=== PATIENT | male | born 1935 | race Caucasian/White ===

== ENCOUNTER 2020-07-02 17:47 | Emergency (ER) | payer MEDICARE ==
--- NOTE | 2020-07-02 17:52 | ER Document Report ---
ED Medical Screen (RME) - General Stated Complaint: CONFUSION, POSSIBLE STROKE Time Seen by Provider: 07/02/20 17:50 Mode of Arrival: Ambulatory Information source: Patient, Relative Notes: Patient presents complaining of episodes of confusion since yesterday around 7 PM. Patient has a history of previous CVA and has had problems with aphasia in the past although patient states he has had episodes of confusion, which is different from his baseline. Patient denies any pain symptoms. Patient denies any weakness of extremities. Patient family has spoke to his doctor and they were concerned about possible stroke or an infection that may be causing his symptoms. I have greeted and performed a rapid initial assessment of this patient. A comprehensive ED assessment and evaluation of the patient, analysis of test results and completion of the medical decision making process will be conducted by additional ED providers. Physical Exam - Neurological Neuro grossly intact: Yes Cognition: Normal Sudha Coma Scale Eye Opening: Spontaneous Sudha Coma Scale Verbal: Oriented Sudha Coma Scale Motor: Obeys Commands [place] Coma Scale Total: 15
--- NOTE | 2020-07-02 18:10 | RADIOLOGY REPORT (SQ) ---
EXAM DESCRIPTION: CHEST SINGLE VIEW IMAGES COMPLETED DATE/TIME: 07/02/2020 6:02 pm REASON FOR STUDY: AMS COMPARISON: None. EXAM PARAMETERS: NUMBER OF VIEWS: One view. TECHNIQUE: Single frontal radiographic view of the chest acquired. RADIATION DOSE: NA LIMITATIONS: None. FINDINGS: LUNGS AND PLEURA: No opacities, masses or pneumothorax. No pleural effusion. MEDIASTINUM AND HILAR STRUCTURES: No masses. Contour normal. HEART AND VASCULAR STRUCTURES: Heart normal in size. Normal vasculature. BONES: No acute findings. HARDWARE: None in the chest. OTHER: No other significant finding. IMPRESSION: NO ACUTE RADIOGRAPHIC FINDING IN THE CHEST. TECHNICAL DOCUMENTATION: JOB ID: [id number] 2010 [employer]- All Rights Reserved Reading location - IP/workstation name: [email or web address]
--- NOTE | 2020-07-02 18:15 | RADIOLOGY REPORT (SQ) ---
EXAM DESCRIPTION: CT HEAD WITHOUT IMAGES COMPLETED DATE/TIME: 07/02/2020 6:01 pm REASON FOR STUDY: AMS COMPARISON: None. TECHNIQUE: Axial images acquired through the brain without intravenous contrast. Images reviewed wi th bone, brain and subdural windows. Additional sagittal and coronal reconstructions were generated. Images stored on PACS. All CT scanners at this facility use dose modulation, iterative reconstruction, and/or weight based d osing when appropriate to reduce radiation dose to as low as reasonably achievable (ALARA). [facility]: Dose Right [facility]: CareDose [facility]: Dose Right [facility]: Teradose 4D [facility]: Smart Minuum RADIATION DOSE: CT Rad equipment meets quality standard of care and radiation dose reduction techniq ues were employed. CTDIvol: 53.2 mGy. DLP: 991 mGy-cm. mGy. LIMITATIONS: None. FINDINGS: VENTRICLES: Normal size and contour. CEREBRUM: Encephalomalacia in the left temporal lobe and posterior parietal lobe. No hemorrhage. No mass. Areas of low density in the white matter most likely chronic small vessel ischemic changes. CEREBELLUM: No masses. No hemorrhage. No alteration of density. No evidence for acute infarction. EXTRAAXIAL SPACES: No fluid collections. No masses. ORBITS AND GLOBE: No intra- or extraconal masses. Normal contour of globe without masses. CALVARIUM: No fracture. PARANASAL SINUSES: No fluid or mucosal thickening. SOFT TISSUES: No mass or hematoma. OTHER: No other significant finding. 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 Chronic microvascular ischemia. EVIDENCE OF ACUTE STROKE: NO. COMMENT: Pertinent positive or negative findings of the imaging study reported as a CRITICAL EXAM jennifer BRITT NP at18:08 on 07/02/2020. Category of Critical Exam: Stroke alert. Quality ID # [id number]: Final reports with documentation of one or more dose reduction techniques (e.g., Au tomated exposure control, adjustment of the mA and/or kV according to patient size, use of iterative reconstruction technique) TECHNICAL DOCUMENTATION: JOB ID: [id number] 2010 [employer]- All Rights Reserved Reading location - IP/workstation name: [email or web address]
[2020-07-02 18:58] LABS: ABSOLUTE EOSINOPHILS # (AUTO) 0.1 10^3/uL (0.0-0.6); ABSOLUTE LYMPHOCYTES (AUTO) 1.4 10^3/uL (0.5-4.7); ABSOLUTE MONOCYTES (AUTO) 0.8 10^3/uL (0.1-1.4); ABSOLUTE NEUT (AUTO) 5.6 10^3/uL (1.7-8.2); BASOPHILS % (AUTO) 0.2 % (0-2); EOSINOPHILS % (AUTO) 1.4 % (0-6); HEMATOCRIT 43.7 % (37.9-51.0); HEMOGLOBIN 14.6 g/dL (13.5-17.0); LYMPHOCYTES % (AUTO) 18.1 % (13-45); MEAN CORPUSCULAR HEMOGLOBIN 30.6 pg (27.0-33.4); MEAN CORPUSCULAR HGB CONC 33.4 g/dL (32.0-36.0); MEAN CORPUSCULAR VOLUME 92 fl (80-97); MONOCYTES % (AUTO) 9.5 % (3-13); PLATELET COUNT 201 10^3/uL (150-450); RED BLOOD COUNT 4.78 10^6/uL (4.35-5.55); RED CELL DISTRIBUTION WIDTH 14.4 % (11.5-14.0); SEGMENTED NEUTROPHILS % (AUTO) 70.8 % (42-78); TOTAL CELLS COUNTED % (AUTO) 100 %
[2020-07-02 19:06] LABS: INTERNATIONAL RATION (INR) 1.05; PROTHROMBIN TIME 13.9 SEC (11.4-15.4)
[2020-07-02 19:16] LABS: ALBUMIN 3.8 g/dL (3.5-5.0); ALKALINE PHOSPHATASE 104 U/L (38-126); ANION GAP 6 (5-19); ASPARTATE AMINO TRANSFERASE 23 U/L (17-59); BILIRUBIN,DIRECT 0.4 mg/dL (0.0-0.4); BILIRUBIN,TOTAL 0.8 mg/dL (0.2-1.3); BLOOD UREA NITROGEN 25 mg/dL (7-20); CALCIUM 9.1 mg/dL (8.4-10.2); CARBON DIOXIDE 32 mmol/L (22-30); CHLORIDE 97 mmol/L (98-107); CREATINE KINASE 36 U/L (55-170); GLUCOSE 99 mg/dL (75-110); POTASSIUM 4.8 mmol/L (3.6-5.0); TOTAL PROTEIN 6.3 g/dL (6.3-8.2)
[2020-07-02 19:27] LABS: CREATINE KINASE MB 3.07 ng/mL (<4.55)
[2020-07-02 19:32] LABS: TROPONIN I < 0.012 ng/mL
[2020-07-02 20:02] LABS: APPEARANCE,URINE CLEAR; BILIRUBIN,URINE NEGATIVE (NEGATIVE); COLOR,URINE YELLOW; GLUCOSE, URINE NEGATIVE (NEGATIVE); KETONES,URINE TRACE mg/dL (NEGATIVE); PROTEIN,URINE NEGATIVE (NEGATIVE); URINE SPECIFIC GRAVITY 1.028; UROBILINOGEN,URINE NEGATIVE mg/dL (<2.0)
--- NOTE | 2020-07-02 20:54 | RADIOLOGY REPORT (SQ) ---
MR BRAIN WITHOUT IV CONTRAST MR ANGIOGRAPHY OF THE HEAD HISTORY: Stroke. COMPARISON: CT scan from earlier the same day. TECHNIQUE: 1) Multisequence, multiplanar MR imaging of the brain was performed without the administration of intravenous gadolinium. 2) MR angiography of the head was performed without the administration of intravenous gadolinium. FINDINGS: MRI: There is an area of restricted diffusion in the left parietal lobe consistent with acute cortical infarction. Scattered areas of T2/FLAIR hyperintense foci are seen in the supratentorial white matter, likely representing chronic microvascular ischemia. There is an old area of encephalomalacia in the left temporal lobe with surrounding gliosis. There is no intracranial hemorrhage, extra-axial fluid collection, or mass. The orbits are unremarkable. The calvarium and skull base appear unremarkable. The paranasal sinuses are clear. MRA: The anterior and posterior cerebral circulations are patent. No hemodynamically significant stenosis, aneurysmal dilatation or dissection is seen. No focal aneurysm is identified. IMPRESSION: 1. 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 2. Chronic microvascular ischemic disease. 3. Unremarkable MR angiogram of the head.
--- NOTE | 2020-07-02 21:06 | ER Document Report ---
Entered by GONZALO KERR SCRIBE 07/02/20 [id number] Acting as scribe for:MIRLANDE MORSE DO ED General - General Chief Complaint: S/S of Possible Stroke Stated Complaint: CONFUSION, POSSIBLE STROKE Time Seen by Provider: 07/02/20 17:50 Mode of Arrival: Ambulatory Information source: Relative - Daughter Notes: This 85 year old male patient presents to the emergency department today with increased confusion that began last night. Daughter is at bedside and providing history. 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 The back surgery went well and so has physical therapy. 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 Daughter states last night his confusion was above baseline, but is normal today. Daughter states he ambulates normally and denies vision changes or recent illness. Daughter states she called the patient's Neurologist about last nights episode and was told to visit the ED. Daughter reports history of HTN, HLD, GI bleeds, and recent hyperthyroidism, which they are monitoring. Daughter states patient cannot take blood thinners because of history with GI bleeds and was taking aspirin until his CVA, when they changed him to take Plavix. - Related Data Allergies/Adverse Reactions: No Known Allergies Allergy (Unverified 07/02/20 21:54) Past Medical History - General Information source: Patient, Relative - Daughter - Social History Smoking Status: Unknown if Ever Smoked Lives with: Family Family History: Reviewed & Not Pertinent - Past Medical History Cardiac Medical History: Reports: Hx Hypercholesterolemia, Hx Hypertension - on meds Neurological Medical History: Reports: Hx Cerebrovascular Accident - x2 Endocrine Medical History: Reports: Hx Hyperthyroidism GI Medical History: Reports: Hx Ulcer Past Surgical History: Reports: Hx Orthopedic Surgery Review of Systems - Review of Systems Constitutional: See HPI. denies: Recent illness EENT: See HPI, Other - no vision changes Cardiovascular: No symptoms reported Respiratory: No symptoms reported Gastrointestinal: No symptoms reported Genitourinary: No symptoms reported Male Genitourinary: No symptoms reported Musculoskeletal: No symptoms reported Skin: No symptoms reported Hematologic/Lymphatic: No symptoms reported Neurological/Psychological: See HPI, Confusion. denies: Weakness -: Yes All other systems reviewed and negative Physical Exam - Vital signs Vitals: Pulse Ox 95 07/02/20 18:47 - General General appearance: Appears well, Alert - HEENT Head: Normocephalic, Atraumatic Eyes: Normal Pupils: PERRL - Respiratory Respiratory status: No respiratory distress Chest status: Nontender Breath sounds: Normal Chest palpation: Normal - Cardiovascular Rhythm: Regular Heart sounds: Normal auscultation Murmur: No - Abdominal Inspection: Normal, Other - Soft Distension: No distension Bowel sounds: Normal Tenderness: Nontender - Extremities General upper extremity: Normal inspection, Normal ROM General lower extremity: Normal inspection, Normal ROM. No: Edema - Neurological Neuro grossly intact: Yes Sudha Coma Scale Eye Opening: Spontaneous [place] Coma Scale Verbal: Oriented Sudha Coma Scale Motor: Obeys Commands Sudha Coma Scale Total: 15 Sensory: Normal - Psychological Associated symptoms: Normal affect, Normal mood - Skin Skin Temperature: Warm Skin Moisture: Dry Skin Color: Normal Course - Re-evaluation Re-evalutation: 07/02/20 22:17 MDM 85 year old right handed male is here with daughter with complaints of confusion last evening and then acting like he has previously with cva. He has a h/o temporal lobe cva with resultant aphasia and then confusion with 2 previous episodes of cva. Neurology at [facility] follows this gentleman. He is quite functional and actually went fishing earlier today. 07/02/20 23:55 Dr Wick at [facility] has graciously accepted the pt in transfer. We are awaiting a bed. 07/03/20 02:04 While TPA was considered his time of onset of this event was > 24 hours and therefore no stroke protocol was initiated and no tpa ordered. - Vital Signs Vital signs: Temp Pulse Resp BP Pulse Ox 65 14 185/89 H 100 07/02/20 18:51 07/02/20 18:51 07/02/20 18:51 07/02/20 18:51 - Laboratory Result Diagrams: 07/02/20 18:32 07/02/20 18:32 Laboratory results interpreted by me: 07/02/20 07/02/20 07/02/20 18:32 18:32 18:32 RDW 14.4 H Sodium 134.8 L Chloride 97 L Carbon Dioxide 32 H BUN 25 H Lactic Acid Creatine Kinase 36 L TSH 0.34 L Urine Ketones Urine Ascorbic Acid 07/02/20 07/02/20 18:54 19:46 RDW Sodium Chloride Carbon Dioxide BUN Lactic Acid 0.6 L Creatine Kinase TSH Urine Ketones TRACE H Urine Ascorbic Acid 20 H - EKG Interpretation by Me EKG shows normal: Sinus rhythm Rate: Normal Rhythm: NSR - NSR Left [place] 65 BPM Poor R wave progression no st elevation or depression my interpretation. Critical Care Note - Critical Care Note Total time excluding time spent on procedures (mins): 30 Discharge - Discharge Clinical Impression: CVA (cerebral vascular accident) Qualifiers: CVA mechanism: unspecified Qualified Code(s): I63.9 - Cerebral infarction, unspecified Condition: Serious Disposition: [place] I personally performed the services described in the documentation, reviewed and edited the documentation which was dictated to the scribe in my presence, and it accurately records my words and actions.
--- NOTE | 2020-07-03 07:02 | EKG REPORT ---
SEVERITY:- ABNORMAL ECG - SINUS RHYTHM LEFT ANTERIOR FASCICULAR BLOCK : Confirmed by: Tre Wagner MD 03-Jul-2020 07:00:10
[2020-07-03] MEDS ORDERED: LISINOPRIL 5 MG TABLET PO ONE (07:54)
[2020-07-03] MEDS ORDERED: CLOPIDOGREL BISULFATE 75 MG TABLET PO ONE (07:54)
--- NOTE | 2020-07-03 08:00 | ER Document Report ---
Doctor's Note Notes: 07/03/20 07:59 Patient symptoms remain stable. Transportation here for patient right now. The patient remains appropriate for transfer at this time. Ordered home doses of lisinopril 5 p.o. and Plavix 75 p.o. Discussed with patient's daughter and answered all questions.
[2020-07-03 08:14] VITALS: BP 178/86
== END 2020-07-03 08:14 | disposition short-term general hospital (02) ==
LOC: ER 17:47
DX: I63.9 Cerebral infarction, unspecified (principal); R41.0 Disorientation, unspecified; I10 Essential (primary) hypertension; E78.5 Hyperlipidemia, unspecified
CPT/HCPCS: 93005; 99285; 36415; 82553; 82962; 82550; 83605; 84443; 85025; 85610; 85730; 80053; 81001; 84484; 70551; 70544; 71045; 70450; 93010; A9270 ×2